=== PATIENT | male | born 1955 | race African-American/Black ===

== ENCOUNTER 2022-01-29 21:27 | Emergency (ER) | payer BC ==
[~2022-01-29] VITALS: Ht 188 cm; Wt 183.0 kg
[2022-01-29] MEDS ORDERED: HYDROCODONE/ACETAMINOPHEN 10/325MG TABLET PO ONE (23:15)
[2022-01-29] MEDS ORDERED: TETANUS, DIPHTHERIA, PERTUSSIS VAC/PF 0.5ML (>10YR OLD) IM ONE (23:15)
[2022-01-29] MEDS ORDERED: LIDOCAINE HCL/PF 1% 10 MG/ML 5ML VIAL INFIL ONE (23:30)
[2022-01-29] MEDS ORDERED: BACITRACIN ZINC OINT UDPKT TOP ONE (23:30)
[2022-01-30] MEDS ORDERED: MORPHINE SULFATE 4 MG/ML CPJ (NOT FOR IM USE) IV STA ×2 (02:31→12:32)
[2022-01-30] MEDS ORDERED: ONDANSETRON HCL 4MG/2ML INJ IV STA ×2 (02:31→12:32)
[2022-01-30] MEDS ORDERED: MORPHINE SULFATE 4 MG/ML CPJ (NOT FOR IM USE) IV ONE (07:00)
[2022-01-30 12:42] VITALS: BP 135/67
== END 2022-01-30 13:17 | disposition short-term general hospital (02) ==
LOC: ER 21:34
DX: S32.402A Unspecified fracture of left acetabulum, initial encounter for closed fracture (principal); S52.692A Other fracture of lower end of left ulna, initial encounter for closed fracture; S22.42XA Multiple fractures of ribs, left side, initial encounter for closed fracture; S50.02XA Contusion of left elbow, initial encounter; V23.49XA Other motorcycle driver injured in collision with car, pick-up truck or van in traffic accident, initial encounter; Y93.89 Activity, other specified; Y92.488 Other paved roadways as the place of occurrence of the external cause
CPT/HCPCS: 29125; 71045; 71250; 72192; 73080; 73090; 90471; 90715; 96374; 96375; 96376; 99285; J2270; J2405; J3490; Z7610